=== PATIENT | male | born 1965 | race Caucasian/White ===

== ENCOUNTER 2018-03-03 08:42 | Observation (INO) ==
[~2018-03-03 08:42] MED LIST: Lidocaine 1%/Epinephrine 1:100,000 Inj 30 ML Vial ONE
[2018-03-03] MEDS ORDERED: Ampicillin/Sulbactam Inj 3 GM in Sodium Chloride 0.9% Inj 100 ML IV.SIG PRN (09:05)
[2018-03-03] MEDS ORDERED: Chlorhexidine Gluconate 2% 1 Pack (2 Cloths) TOPICAL SCH (09:15)
[2018-03-03] MEDS ORDERED: Metoprolol Tartrate 25 MG Tablet PO SCH (09:15)
[2018-03-03] MEDS ORDERED: Famotidine PF Inj 20 MG/2 ML Vial ONE (09:30)
[2018-03-03] MEDS ORDERED: Sodium Chlor 0.9% Inj 500 ML IV.SIG SCH (10:00)
[2018-03-03] MEDS ORDERED: fentaNYL Citrate Inj 100 MCG/2 ML Ampul ONE (11:45)
[2018-03-03] MEDS ORDERED: *Meperidine Inj 25 MG/ML Vial PERIprocedural Use ONLY ONE (11:47)
[2018-03-03] MEDS ORDERED: Morphine Sulfate Inj 2 MG/ML Vial ONE (12:14)
[2018-03-03 13:21] VITALS: RESP 20
[2018-03-03] MEDS ORDERED: Acetaminophen 325 MG Tablet PO PRN (16:14)
[2018-03-03] MEDS: Ampicillin/Sulbactam Inj 3 GM in Sodium Chloride 0.9% Inj 100 ML IV.SIG SCH (17:10)
[2018-03-04] MEDS: Ampicillin/Sulbactam Inj 3 GM in Sodium Chloride 0.9% Inj 100 ML IV.SIG SCH ×2 (02:04→09:29)
[2018-03-04 08:09] VITALS: O2SAT 97
[2018-03-04 09:35] VITALS: BP 116/64; PULSE 73; TEMP 96.1
[2018-03-04] MEDS ORDERED: Lidocaine PF 1% Inj 5 ML Syringe INFILTRATN ONE (12:00)
--- NOTE | 2018-04-25 13:04 | MP ---
cc: Donte Moss MD DATE OF OPERATION: 03/03/2018 SURGEON: Donte Moss MD PREOPERATIVE DIAGNOSES: 1. Chronic pansinusitis. 2. Sinonasal polyposis. 3. Nasal airway obstruction. 4. Nasal septal deviation. 5. Hypertrophy of inferior turbinates. POSTOPERATIVE DIAGNOSES: 1. Chronic pansinusitis. 2. Sinonasal polyposis. 3. Nasal airway obstruction. 4. Nasal septal deviation. 5. Hypertrophy of inferior turbinates. OPERATION PERFORMED: 1. Open repair of nasal septal fracture. 2. Bilateral submucosal resection of inferior turbinates. 3. Bilateral endoscopic total ethmoidectomy. 4. Bilateral endoscopic maxillary antrostomy with removal of maxillary sinus tissue. 5. Bilateral endoscopic exploration of frontal sinus duct with balloon dilation. 6. Bilateral endoscopic sphenoidotomy with debridement of sphenoid sinus tissue. INDICATIONS: Documented in the history and physical. DESCRIPTION OF PROCEDURE: The patient was taken to OR #2 and placed in the supine position. Following induction of general anesthesia and intubation, the nose was packed bilaterally with cotton pledgets saturated in 0.05% oxymetazoline. Nasal septal mucosa and the inferior turbinates were injected with a total of 8 mL of 1% Xylocaine with epinephrine 1:100,000. He was then prepped and draped for surgery. Nasal packing was removed and a hemitransfixion incision was made in the left nasal vestibule. Through this incision, the septal mucosa was elevated bilaterally as far as the junction of the bony and cartilaginous septum. This gave an end-on exposure of the quadrangular cartilage, which showed bilateral deviation caused by comminuted fragments of old septal fracture. These were extending bilaterally, right greater than left, and obstructing the airway. A cumulative area of 2 x 2.5 cm was removed preserving 1.5 cm dorsal and caudal cartilaginous struts. Mucosa was then elevated from the bony septum and the maxillary crest and these were removed using Brandyn-Dalton forceps. The incision was then closed with a running suture of 4-0 chromic and the mucosal layers of septum were approximated to each other with a quilting stitch of 4-0 plain gut. The inferior turbinates were then addressed. They were fractured out medially and stab incisions were made along their inferior surfaces. Through these incisions, the submucosal soft tissue was reduced using a curette and preserving the conchal bone. The incisions were then cauterized using the suction Bovie at 35 hernandez and the remnants of the inferior turbinates were then re-lateralized to the lateral nasal wall. At this point on, the operation was done using endoscopic visualization with a Storz 0-degree fiberoptic scope. Additional injections of lidocaine and epinephrine were made into the polypoid tissue filling the superior nasal vault and into the attachment of the middle turbinates. Left side was then addressed first and the polypoid tissue in the vault was removed with the power microdebrider. This gave adequate exposure of the lateral nasal wall and then the inferior turbinate was amputated along its superior and posterior horizontal attachments using a Thru-cutting Blakesley forceps and the power microdebrider. This was included in the specimen labeled left sinus contents. The ethmoids then were done using blunt and power dissection. The bony septations and polypoid tissue and purulent material filling the ethmoid cavities both anteriorly and posteriorly were debrided. This was carried back to the rostrum of the sphenoid. This was also included in the specimen labeled left sinus contents. The maxillary ostium was addressed next. It was enlarged using Stammberger forceps and the power microdebrider and then debrided using upbiting Blakesley forceps. The contents here were also included in this left side sinus specimen. The sphenoid sinus was addressed on the left side next. It was probed using a #10 suction and enlarged with the power debrider. Then, under direct visualization, it were debrided with a Blakesley forceps. The right side was then addressed in the same fashion beginning with removal of polypoid tissue that was obscuring the superior vault and lateral nasal wall, followed by removal of the middle turbinate. Uncinectomy and exenteration of anterior and posterior ethmoids and then enlargement of the maxillary ostium and debridement of the maxillary sinus cavity, enlargement of the sphenoid ostium and debridement of the sphenoid cavity. This was all included in the specimen labeled right sinus contents. The cavities were then irrigated with chilled saline and packed with cotton pledgets, which remained in place while the frontal duct dilation and debridement were completed. Left side first beginning with the Acclarent balloon technique to dilate the frontal duct, the guidewire was advanced into the frontal sinus. The balloon was advanced over the wire. Then the balloon was inflated superiorly at the midpoint and inferiorly to a pressure of 12 atmospheres. The duct was then debrided of the soft tissue and bony fragments and verified patent all the way into the frontal sinus. The right side was then operated in the same fashion. The packing was then removed from the ethmoid and maxillary cavities. These were once again irrigated and were filled then with Stammberger sinus foam. The inferior nasal vault was then packed with Merocel tampons coated in mupirocin ointment and the procedure was terminated. The patient was then reversed from anesthesia and taken to recovery in good condition. There were no complications. Blood loss was 800 mL. MD ZAK Wilkerson/mainor , 12:24 PM , 12:35 PM
== END 2018-03-04 10:28 | disposition home or self-care (01) ==
LOC: PH3 08:42 → PHSDC 08:42
PROVIDERS: ADMIT Otolaryngology; ATTEND Otolaryngology

== ENCOUNTER 2018-03-05 09:54 | Observation (INO) ==
[2018-03-05] MEDS ORDERED: Lidocaine 1%/Epinephrine 1:100,000 Inj 30 ML Vial ONE (10:39)
[2018-03-05] MEDS ORDERED: Chlorhexidine Gluconate 2% 1 Pack (2 Cloths) TOPICAL SCH (10:45)
[2018-03-05] MEDS ORDERED: Metoprolol Tartrate 25 MG Tablet PO SCH (10:45)
[2018-03-05] MEDS ORDERED: fentaNYL Citrate Inj 100 MCG/2 ML Ampul ONE (10:46)
[2018-03-05 10:57] LABS: Hematocrit 40.4 % (39.0-51.0); Hemoglobin 13.3 gm/dL (13.0-17.0)
[2018-03-05] MEDS ORDERED: Sodium Chlor 0.9% Inj 500 ML IV.SIG SCH (11:00)
[2018-03-05] MEDS ORDERED: Gelatin Size 100 Topical Foam ONE (12:01)
[2018-03-05] MEDS ORDERED: Thrombin Topical Soln 5,000 UNIT Vial TOPICAL ONE ×2 (12:01→12:06)
[2018-03-05] MEDS ORDERED: Gelatin 12 MM/7 MM Topical Foam ONE (12:02)
[2018-03-06] MEDS ORDERED: Succinylcholine Inj 100 MG/5 ML Syringe IV.PUSH ONE (12:00)
[2018-03-06] MEDS ORDERED: Lidocaine PF 1% Inj 5 ML Syringe INFILTRATN ONE (12:00)
[2018-03-06] MEDS ORDERED: Desmopressin Inj 4 MCG/ML Ampul IV.PUSH ONE (12:00)
--- NOTE | 2018-03-19 10:34 | MP ---
cc: Donte Moss MD DATE OF OPERATION: 03/05/2018 SURGEON: Donte Moss MD. PREOPERATIVE DIAGNOSIS: Postoperative bilateral epistaxes. POSTOPERATIVE DIAGNOSIS: Postoperative bilateral epistaxes. PROCEDURE PERFORMED: Bilateral endoscopic control of postoperative epistaxes. INDICATIONS: Guillaume Mcclendon is a 52-year-old man who is 2 days out from extensive and endoscopic sinus surgery for sinonasal polyposis and chronic sinusitis. Two attempts have been made to unpack his nose for postoperative debridement. On both occasions, he bled, the second time more briskly than the first. He is presently packed with 5.5-cm Rapid Rhino packs and returns to the operating room for definitive control of postoperative epistaxes. DESCRIPTION OF PROCEDURE: The patient was taken to OR #2 and placed in the supine position. Following induction of general anesthesia and intubation, he was draped and positioned for endoscopic surgery of the nose. The Rapid Rhino balloons were removed and the nose was examined endoscopically. The nasal vault was filled with clots of blood bilaterally. The nose was then packed for 5 minutes with cotton pledgets saturated in oxymetazoline. These remained in place, while a throat pack was put in place. Dressing left side first. The packing was removed and the nose was then examined with the endoscope and suction. Numerous sites of bleeding were identified on the inferior turbinates, the septal mucosa, and then the margins of the middle turbinate, which had been excised during the first operation. These were controlled using suction Bovie and this side was once again packed including within the ethmoid and maxillary sinuses, while the right side was examined and operated in the same fashion. There was an arterial bleeder present along the attachment of the middle turbinate, which was cauterized with suction Bovie. Numerous small sites of oozing were identified along the cut margins of the mucosa of the inferior turbinate, lateral nasal wall, and the septum. This site was also packed with the cotton pledgets saturated in oxymetazoline for 5 minutes. Packing was then removed and the nose was once again examined. It was irrigated and suctioned using chilled saline. There was no further bleeding identified, and the nose was then packed with Gelfoam pledgets saturated in oxymetazoline. These were placed into the sphenoid, ethmoid, and maxillary sinuses. The nose was fully packed. The procedure was terminated and the patient was reversed from anesthesia and taken to recovery in good condition. No complications. Blood loss was 100 mL. MD ZAK Wilkerson/avril , 08:01 AM , 08:07 AM
== END 2018-03-06 09:45 | disposition home or self-care (01) ==
LOC: PHSDC 09:54 → PH3 09:54
PROVIDERS: ADMIT Otolaryngology; ATTEND Otolaryngology